=== PATIENT | male | born 1965 | race Caucasian/White ===

== ENCOUNTER 2017-02-01 07:19 | Outpatient (CLI) | payer OTHER ==
[2017-02-01] MEDS ORDERED: IOPAMIDOL-300 100 ML VIAL IVP ONE (08:47)
== END 2017-02-01 07:20 | disposition home or self-care (01) ==
DX: N21.0 Calculus in bladder (principal); N20.0 Calculus of kidney
CPT/HCPCS: 74178; Q9967

== ENCOUNTER 2017-07-18 13:18 | Outpatient (CLI) | payer OTHER ==
[2017-07-18 13:30] LABS: CHOL/HDL RATIO 4.1 (<5.0); CHOLESTEROL 319 mg/dL; HDL CHOLESTEROL 78 mg/dL; LDL/HDL RATIO 2.4 (<3.6); TRIGLYCERIDES 280 mg/dL; VLDL CHOLESTEROL 56 mg/dL
== END 2017-07-18 13:19 | disposition home or self-care (01) ==
LOC: LAB.WCP 13:18
DX: E78.5 Hyperlipidemia, unspecified (principal); Z12.5 Encounter for screening for malignant neoplasm of prostate; Z79.899 Other long term (current) drug therapy
CPT/HCPCS: 36415; 80061; 84153; 84450; 84460

== ENCOUNTER 2017-08-01 07:10 | Outpatient (CLI) | payer OTHER ==
--- NOTE | 2017-08-01 14:02 | Ultrasound Report ---
COMPLETE ABDOMINAL ULTRASOUND: 08/01/2017 CLINICAL INDICATION: Abnormal enzymes. TECHNIQUE: Real-time scanning was performed with outside sales representative static images obtained. FINDINGS: The liver measures 15.8 cm. Hepatic echogenicity is diffusely increased, compatible with f atty infiltration. No focal parenchymal lesion or intrahepatic biliary dilatation is seen. The common bile duct measures 5 mm. The gallbladder is normal, as is the pancreas. The right kidney measures 11 .6 cm, and is unremarkable. The left kidney measures 11.9 cm, and demonstrates an incidental 1.4 cm c yst in the lower pole. The spleen measures 11.9 cm, and demonstrates normal echotexture. The abdomina l aorta is normal in caliber throughout. The inferior vena cava is unremarkable. No free fluid is pre sent. IMPRESSION: FATTY INFILTRATION OF THE LIVER. NO EVIDENCE OF CHOLELITHIASIS OR BILIARY OBSTRUCTION. JOB #: [id number] EXT JOB #:[id number]
== END 2017-08-01 07:11 | disposition home or self-care (01) ==
LOC: DI 07:10
PROVIDERS: ATTEND Family Medicine
DX: K76.0 Fatty (change of) liver, not elsewhere classified (principal)
CPT/HCPCS: 76700

== ENCOUNTER 2017-09-04 11:34 | Day surgery (SDC) | payer OTHER ==
[2017-09-04] MEDS ORDERED: LACTATED RINGERS 1,000 ML IV ONE (12:08)
[2017-09-04] MEDS ORDERED: MIDAZOLAM 2 MG/2 ML VIAL IVP ONE (12:23)
[2017-09-04] MEDS ORDERED: fentaNYL 100 MCG/2 ML VIAL IVP ONE (12:23)
[2017-09-04 13:38] VITALS: BP 135/92
== END 2017-09-04 11:35 | disposition home or self-care (01) ==
LOC: SDS 11:34
PROVIDERS: ATTEND Surgery
PROC: 0DBN8ZX Excision of Sigmoid Colon, Via Natural or Artificial Opening Endoscopic, Diagnostic (ICD-10-PCS; 2017-09-04)
PROC: 0DBL8ZX Excision of Transverse Colon, Via Natural or Artificial Opening Endoscopic, Diagnostic (ICD-10-PCS; principal; 2017-09-04 13:30)
DX: Z12.11 Encounter for screening for malignant neoplasm of colon (principal); D12.3 Benign neoplasm of transverse colon; Z80.0 Family history of malignant neoplasm of digestive organs
CPT/HCPCS: 45384; 45385; J7120

== ENCOUNTER 2019-08-14 18:21 | Emergency (ER) | payer OTHER ==
[2019-08-14] MEDS ORDERED: OLANZapine 10 MG VIAL IM STA (18:34)
[2019-08-14] MEDS ORDERED: LORazepam 2 MG/ML VIAL IM STA (18:34)
[2019-08-14 18:56] LABS: BASOPHILS % (AUTO) 0.5 %; EOSINOPHILS % (AUTO) 0.7 %; HGB - HEMOGLOBIN 15.3 g/dL (14.0-18.0); LYMPHOCYTES # (AUTO) 2.2 10^3/uL (1.5-3.5); LYMPHOCYTES % (AUTO) 39.9 %; MEAN CORPUSCULAR HEMOGLOBIN 33.1 pg (27.0-31.0); MEAN CORPUSCULAR HGB CONC 34.5 g/dL (32.0-36.0); MEAN CORPUSCULAR VOLUME 95.9 fL (80.0-94.0); MONOCYTES # (AUTO) 0.7 10^3/uL (0.0-1.0); MONOCYTES % (AUTO) 12.9 %; NEUTROPHILS # (AUTO) 2.5 10^3/uL (1.5-6.6); NEUTROPHILS % (AUTO) 45.5 %; PLT - PLATELET COUNT 183 10^3/uL (130-450); RED BLOOD COUNT 4.62 10^6/uL (4.70-6.10); RED CELL DISTRIBUTION WIDTH 12.6 % (12.0-15.0); WHITE BLOOD COUNT 5.6 x10^3/uL (4.8-10.8)
[2019-08-14 19:07] LABS: ACETAMINOPHEN < 10 ug/mL (10-30); ALBUMIN 4.7 g/dL (3.2-5.5); ALBUMIN/GLOBULIN RATIO 1.3 (1.0-2.2); ALKALINE PHOSPHATASE 70 IU/L (42-121); ALT ALANINE AMINOTRANSFERASE 107 IU/L (10-60); AST ASPARTATE AMINOTRANSFERASE 113 IU/L (10-42); BUN - BLOOD UREA NITROGEN 17 mg/dL (6-20); CALCIUM 9.4 mg/dL (8.5-10.3); CARBON DIOXIDE - CO2 23 mmol/L (21-32); CHLORIDE 104 mmol/L (101-111); CREATININE 1.1 mg/dL (0.6-1.2); GFR - MDRD 70 (>89); GLUCOSE 103 mg/dL (70-100); LIPASE 47 U/L (22-51); SALICYLATE < 6.0 mg/dL; SODIUM 141 mmol/L (135-145); TOTAL PROTEIN 8.3 g/dL (6.7-8.2)
[2019-08-15] MEDS ORDERED: FOLIC ACID INJ 1 MG, THIAMINE INJ 100 MG, MAGNESIUM SULFATE 2 GM, MULTIVITAMIN 10 ML in... IV STA ×5 (00:26)
[2019-08-15] MEDS ORDERED: THIAMINE 100 MG/1 ML 2 ML MDV ONE (00:42)
[2019-08-15] MEDS ORDERED: SODIUM CHLORIDE 0.9% 1,000 ML IV ONE (01:34)
--- NOTE | 2019-08-15 03:12 | ED Physician Documentation ---
PD HPI MHE - Stated complaint Stated Complaint: MHE - Chief complaint Chief Complaint: MHE - History obtained from History obtained from: Patient - History of Present Illness Primary symptom: Suicidal ideation Timing - onset: Today Contributing factors: Sig other, Substance abuse - ETOH Similar symptoms before: Has not had sx before Recently seen: Not recently seen - Additional information Additional information: 53 y/o intoxicated male arrives by police in handcuffs for suicidal ideation that is documented in texts to his that he is . Review of Systems Constitutional: denies: Fever Eyes: denies: Decreased vision Ears: denies: Ear pain Nose: denies: Congestion Throat: denies: Sore throat Respiratory: denies: Cough GI: denies: Nausea, Vomiting : denies: Dysuria Skin: denies: Rash Musculoskeletal: denies: Neck pain, Back pain, Extremity pain Neurologic: denies: Generalized weakness, Focal weakness, Numbness Psychiatric: reports: Depressed. denies: Suicidal, Homicidal, Hallucinations PD PAST MEDICAL HISTORY - Past Medical History Cardiovascular: Hypertension, High cholesterol Respiratory: None Endocrine/Autoimmune: None GI: Other : None HEENT: None Psych: Anxiety Musculoskeletal: None Derm: Psoriasis - Past Surgical History General: Other - Present Medications Home Medications: Ambulatory Orders Medication Instructions Recorded Confirmed Clobetasol Propionate [Temovate] 1 ea TOP DAILY 09/22/15 09/03/17 SUMAtriptan [Imitrex] 25 mg PO BID #10 tablet 09/22/15 09/03/17 Adalimumab [Humira] 1 each ABBOJECT ONCE 09/03/17 09/03/17 Paroxetine HCl [Paxil] 20 mg PO ONCE PRN 09/03/17 09/04/17 - Allergies Allergies/Adverse Reactions: Allergies Allergy/AdvReac Type Severity Reaction Status Date / Time Penicillins Allergy Hives Verified 08/14/19 18:26 Sulfa (Sulfonamide Allergy Hives Verified 08/14/19 18:26 Antibiotics) - Social History Does the pt smoke?: No Smoking Status: Never smoker Does the pt drink ETOH?: Yes Does the pt have substance abuse?: No PD ED PE NORMAL - Vitals Vital signs reviewed: Yes (tachy and hypertensive ) - General General: Alert and oriented X 3, No acute distress, Well developed/nourished - HEENT HEENT: Atraumatic, PERRL, EOMI - Neck Neck: Supple, no meningeal sign - Respiratory Respiratory: No respiratory distress - Derm Derm: Normal color, Warm and dry, No rash - Extremities Extremities: No deformity, No edema - Neuro Neuro: Alert and oriented X 3, electrical electronics technician 2-12 intact, No motor deficit, No sensory deficit, Normal speech Eye Opening: Spontaneous Motor: Obeys Commands Verbal: Oriented GCS Score: 15 - Psych Psych: Normal mood, Normal affect Results - Vitals Vitals: Vital Signs - 24 hr 08/14/19 08/14/19 08/14/19 18:23 19:38 21:42 Temperature 98.3 C H Heart Rate 120 H 96 60 Respiratory 18 16 Rate Blood Pressure 162/117 H 154/96 H O2 Saturation 96 97 95 08/14/19 08/15/19 08/15/19 23:15 01:00 03:00 Temperature 36.5 C Heart Rate 81 71 78 Respiratory 16 12 14 Rate Blood Pressure 88/57 L 80/57 L 102/78 O2 Saturation 99 100 100 08/15/19 08/15/19 05:00 07:00 Temperature Heart Rate 77 78 Respiratory 12 14 Rate Blood Pressure 111/77 135/92 H O2 Saturation 97 100 Oxygen O2 Source Room air - Labs Labs: Laboratory Tests 08/14/19 08/14/19 08/14/19 18:48 18:48 18:48 WBC 5.6 RBC 4.62 L Hgb 15.3 Hct 44.3 MCV 95.9 H MCH 33.1 H MCHC 34.5 RDW 12.6 Plt Count 183 MPV 8.0 Neut # (Auto) 2.5 Lymph # (Auto) 2.2 [place] # (Auto) 0.7 Eos # (Auto) 0.0 Baso # (Auto) 0.0 Absolute Nucleated RBC 0.00 Nucleated RBC % 0.0 Sodium 141 Potassium 3.3 L Chloride 104 Carbon Dioxide 23 Anion Gap 14.0 H BUN 17 Creatinine 1.1 Estimated GFR (MDRD) 70 L Glucose 103 H Calcium 9.4 Total Bilirubin 1.0 AST 113 H ALT 107 H Alkaline Phosphatase 70 Total Protein 8.3 H Albumin 4.7 Globulin 3.6 Albumin/Globulin Ratio 1.3 Lipase 47 TSH 2.31 Urine Color Urine Clarity Urine pH Ur Specific [place] Urine Protein Urine Glucose (UA) Urine Ketones Urine Occult Blood Urine Nitrite Urine Bilirubin Urine Urobilinogen Ur Leukocyte Esterase Ur Microscopic Review Urine Culture Comments Salicylates < 6.0 Acetaminophen < 10 L Ethyl Alcohol 373.9 08/15/19 07:34 WBC RBC Hgb Hct MCV MCH MCHC RDW Plt Count MPV Neut # (Auto) Lymph # (Auto) [place] # (Auto) Eos # (Auto) Baso # (Auto) Absolute Nucleated RBC Nucleated RBC % Sodium Potassium Chloride Carbon Dioxide Anion Gap BUN Creatinine Estimated GFR (MDRD) Glucose Calcium Total Bilirubin AST ALT Alkaline Phosphatase Total Protein Albumin Globulin Albumin/Globulin Ratio Lipase TSH Urine Color YELLOW Urine Clarity CLEAR Urine pH 5.5 Ur Specific [place] 1.025 Urine Protein NEGATIVE Urine Glucose (UA) NEGATIVE Urine Ketones NEGATIVE Urine Occult Blood TRACE-INTA Urine Nitrite NEGATIVE Urine Bilirubin NEGATIVE Urine Urobilinogen 0.2 (NORMAL) Ur Leukocyte Esterase NEGATIVE Ur Microscopic Review NOT INDICATED Urine Culture Comments NOT INDICATED Salicylates Acetaminophen Ethyl Alcohol PD MEDICAL DECISION MAKING - ED course Complexity details: reviewed results, re-evaluated patient, considered differential, d/w patient ED course: 53 y/o male has been detained by police as suicidal and an affidavit has been provided. The patient is intoxicated on arrival and not able to participate in interview. As he shirin he is cooperative and wants to go home indicating that he is not suicidal and he is regretting his drunken actions. He is detained in the ED for further evaluation by social worker aide. At shift change care of the patient is turned over to Dr. Johnson with expectation of a consult with social work and discharge to home. Departure - Departure Clinical Impression: Suicidal ideation Alcohol intoxication Qualifiers: Complication of substance-induced condition: with delirium Qualified Code(s): F10.921 - Alcohol use, unspecified with intoxication delirium Condition: Stable Instructions: ED Stress React, ED Alcohol Intoxication Follow-Up: Braynt Harper MD [Primary Care Provider] -
[2019-08-15 07:38] LABS: MUDS CUTOFF CONCENTRATIONS CUTOFF CONC BELOW:
[2019-08-15 07:44] LABS: BILIRUBIN,URINE NEGATIVE (NEGATIVE); GLUCOSE, URINE (UA) NEGATIVE (NEGATIVE); KETONES,URINE (UA) NEGATIVE (NEGATIVE); LEUKOCYTE ESTERASE, URINE NEGATIVE (NEGATIVE); NITRITE,URINE NEGATIVE (NEGATIVE); OCCULT BLOOD,URINE TRACE-INTA (NEGATIVE); PH,URINE 5.5 PH (5.0-7.5); PROTEIN,URINE NEGATIVE (NEGATIVE); UROBILINOGEN,URINE 0.2 (NORMAL) E.U./dL (NORMAL)
[2019-08-15 07:49] LABS: CLARITY,URINE CLEAR (CLEAR)
--- NOTE | 2019-08-15 08:12 | ED Physician Documentation ---
ED Addendum - Addendum Addendum: Patient signed out to me by Dr. Pérez. This is a 53-year-old male who presented with alcohol intoxication and suicidal ideation. As he has become sober his suicidal ideation had has resolved. He is awaiting a social work consult, likely disposition will be discharged. 08/15/19 08:11 Social work evaluate the patient and felt he was safe for discharge, I agree with his assessment. Patient denies any suicidal ideation at this time. He was provided with resources. I recommended that he avoid alcohol or other substances. Return precautions were discussed and patient was discharged home. 08/15/19 09:34 Departure - Departure Disposition: 01 Home, Self Care Clinical Impression: Suicidal ideation Alcohol intoxication Qualifiers: Complication of substance-induced condition: with delirium Qualified Code(s): F10.921 - Alcohol use, unspecified with intoxication delirium Condition: Stable Instructions: ED Stress React, ED Alcohol Intoxication Follow-Up: Bryant Harper MD [Primary Care Provider] - Comments: Return to the emergency department if you have any suicidal ideation, or any other new or concerning symptoms. Please follow-up with your primary care provider and avoid alcohol or other substance use.
[2019-08-15 08:21] LABS: COCAINE SCREEN URINE NEGATIVE (NEGATIVE); METHAMPHETAMINES SCREEN, URINE NEGATIVE (NEGATIVE)
[2019-08-15 08:22] LABS: AMPHETAMINE SCREEN,URINE NEGATIVE (NEGATIVE); BENZODIAZEPINES SCREEN, URINE POSITIVE (NEGATIVE); METHADONE SCREEN, URINE NEGATIVE (NEGATIVE); OPIATE SCREEN, URINE NEGATIVE (NEGATIVE); OXYCODONE SCREEN, URINE NEGATIVE (NEGATIVE); PROPOXYPHENE SCREEN, URINE NEGATIVE (NEGATIVE); TRICYCLIC ANTIDEPRESSANT,URINE NEGATIVE (NEGATIVE)
[2019-08-15 09:37] VITALS: BP 128/88
== END 2019-08-15 09:42 | disposition home or self-care (01) ==
LOC: ED 18:21
DX: R45.851 Suicidal ideations (principal); F10.121 Alcohol abuse with intoxication delirium; F32.9 Major depressive disorder, single episode, unspecified; F41.9 Anxiety disorder, unspecified; I10 Essential (primary) hypertension; Z63.5 Disruption of family by separation and divorce
CPT/HCPCS: 36415; 80320; 80329; 81003; 83690; 96361; 96365; 96372; 99283; 99284; J2060; J3411; 80053; 80306; 80307; 81001; 84443; 85025; 87086

== ENCOUNTER 2019-10-24 07:00 | Outpatient (CLI) | payer OTHER ==
[2019-10-24 13:13] LABS: BASOPHILS % (AUTO) 0.8 %; EOSINOPHILS % (AUTO) 1.2 %; HGB - HEMOGLOBIN 13.6 g/dL (14.0-18.0); LYMPHOCYTES % (AUTO) 39.4 %; MEAN CORPUSCULAR HEMOGLOBIN 30.4 pg (27.0-31.0); MEAN CORPUSCULAR HGB CONC 32.1 g/dL (32.0-36.0); MEAN CORPUSCULAR VOLUME 94.6 fL (80.0-94.0); MEAN PLATELET VOLUME 9.3 fL (7.4-11.4); MONOCYTES # (AUTO) 0.3 10^3/uL (0.0-1.0); MONOCYTES % (AUTO) 11.4 %; NEUTROPHILS # (AUTO) 1.2 10^3/uL (1.5-6.6); NEUTROPHILS % (AUTO) 46.8 %; PLT - PLATELET COUNT 203 10^3/uL (130-450); RED BLOOD COUNT 4.48 10^6/uL (4.70-6.10); WHITE BLOOD COUNT 2.5 x10^3/uL (4.8-10.8)
[2019-10-24 13:55] LABS: ALBUMIN 4.3 g/dL (3.2-5.5); ALBUMIN/GLOBULIN RATIO 1.7 (1.0-2.2); ALKALINE PHOSPHATASE 53 IU/L (42-121); ALT ALANINE AMINOTRANSFERASE 243 IU/L (10-60); AST ASPARTATE AMINOTRANSFERASE 91 IU/L (10-42); BILIRUBIN,TOTAL 1.1 mg/dL (0.2-1.0); BUN - BLOOD UREA NITROGEN 13 mg/dL (6-20); CALCIUM 9.2 mg/dL (8.5-10.3); CARBON DIOXIDE - CO2 27 mmol/L (21-32); CHLORIDE 105 mmol/L (101-111); CHOL/HDL RATIO 3.7 (<5.0); CHOLESTEROL 178 mg/dL; GFR - MDRD 78 (>89); GLUCOSE 91 mg/dL (70-100); HDL CHOLESTEROL 48 mg/dL; LDL CHOLESTEROL,CALCULATED 116 mg/dL; LDL/HDL RATIO 2.4 (<3.6); SODIUM 137 mmol/L (135-145); TOTAL PROTEIN 6.9 g/dL (6.7-8.2); VLDL CHOLESTEROL 14 mg/dL
[2019-10-24 14:09] LABS: RBC MORPHOLOGY (MULTIPLE) 1+ ANISOCYTOSIS (NORMAL)
== END 2019-10-24 23:59 | disposition home or self-care (01) ==
LOC: LAB.WCP 07:00
PROVIDERS: ATTEND Family Medicine
DX: I10 Essential (primary) hypertension (principal); L40.9 Psoriasis, unspecified; E78.5 Hyperlipidemia, unspecified; K76.0 Fatty (change of) liver, not elsewhere classified; R74.8 Abnormal levels of other serum enzymes
CPT/HCPCS: 36415; 80053; 80061; 83721; 84153; 84443; 85025

== ENCOUNTER 2020-02-03 18:14 | Emergency (ER) | payer OTHER ==
--- NOTE | 2020-02-03 18:58 | ED Physician Documentation ---
PD HPI LOWER EXT INJURY - Stated complaint Stated Complaint: RT BIG TOE INJ - Chief complaint Chief Complaint: Ext Problem - History obtained from History obtained from: Patient (54-year-old male patient comes in today with chief complaint of right great toe pain. He works for the [employer]. He was out digging with a shovel when he kicked the shovel to break the dirt list. Developed pain and edema. He continue to work throughout the day noted increased pain in her right toe. When he got home sat down for a few minutes he tried to stand back up he was unable to stand up due to the pain in his right great toe. He has no other complaints today.Right great toe with edema, ecchymosis, tender to palp. He has filled out his portion of the Workmen's Comp. forms.) PD PAST MEDICAL HISTORY - Past Medical History Cardiovascular: Hypertension, High cholesterol Respiratory: None Endocrine/Autoimmune: None GI: Other : None HEENT: None Psych: Anxiety Musculoskeletal: None Derm: Psoriasis - Past Surgical History General: Other - Present Medications Home Medications: Ambulatory Orders Medication Instructions Recorded Confirmed Clobetasol Propionate [Temovate] 1 ea TOP DAILY 09/22/15 09/03/17 SUMAtriptan [Imitrex] 25 mg PO BID #10 tablet 09/22/15 09/03/17 Adalimumab [Humira] 1 each ABBOJECT ONCE 09/03/17 09/03/17 PARoxetine HCl [Paxil] 20 mg PO ONCE PRN 09/03/17 09/04/17 - Allergies Allergies/Adverse Reactions: Allergies Allergy/AdvReac Type Severity Reaction Status Date / Time Penicillins Allergy Hives Verified 02/03/20 18:17 Sulfa (Sulfonamide Allergy Hives Verified 02/03/20 18:17 Antibiotics) - Social History Does the pt smoke?: No Smoking Status: Never smoker Does the pt drink ETOH?: Yes Does the pt have substance abuse?: No PD ED PE NORMAL - General General: Alert and oriented X 3, No acute distress - HEENT HEENT: Atraumatic, PERRL, EOMI - Cardiac Cardiac: RRR - Respiratory Respiratory: No respiratory distress - Extremities Extremities: No deformity. No: No tenderness to palpate, Normal ROM s pain, No edema PD ED PE EXPANDED - Extremities Extremities: Right toe(s) (Right great toe with edema, ecchymosis, tender to palp.) Results - Vitals Vitals: Vital Signs - 24 hr 02/03/20 02/03/20 18:18 19:45 Temperature 36.6 C Heart Rate 88 85 Respiratory 16 16 Rate Blood Pressure 150/100 H 145/89 H O2 Saturation 98 100 Oxygen O2 Source Room air - Rads (name of study) No standard instances Radiology: Final report received (No fracture noted to the right great toe.) PD MEDICAL DECISION MAKING - ED course Complexity details: reviewed results, re-evaluated patient, d/w patient Departure - Departure Disposition: 01 Home, Self Care Clinical Impression: Sprain of toe, great, right Qualifiers: Encounter type: initial encounter Qualified Code(s): S93.501A - Unspecified sprain of right great toe, initial encounter Instructions: ED Sprain Toe Comments: your xray does not show any toe break. You can keep your big toe darlin tapped to the second toe for support. You can ice your toe tonight 10-15 mins every hour to help reduce swelling and pain. Keep your foot elevated tonight as much as you can also to reduce welling. . Your big toe is crucial to your ability to walk, so expect pain to the toe when you are walking for several days. You can take Tylenol for pain control.
--- NOTE | 2020-02-03 19:43 | XRAY Report ---
Reason: right reat toe pain 2/2 kicking shovel Procedure Date: 02/03/2020 Accession Number: [id number] / [id number] Procedure: XR - Toe(s) RT CPT Code: Final Report FULL RESULT: EXAM: RIGHT TOE RADIOGRAPHY EXAM DATE: 02/03/2020 07:01 PM. CLINICAL HISTORY: Right reat toe pain 2/2 kicking shovel. COMPARISON: None. TECHNIQUE: 3 views. FINDINGS: Bones: No acute displaced fracture or malalignment. Joints: Normal. No subluxations. Soft Tissues: Normal. No soft tissue swelling. IMPRESSION: No acute displaced fracture or malalignment. RADIA
[2020-02-03 19:45] VITALS: BP 145/89
== END 2020-02-03 19:51 | disposition home or self-care (01) ==
LOC: ED 18:14
DX: S93.501A Unspecified sprain of right great toe, initial encounter (principal); W22.8XXA Striking against or struck by other objects, initial encounter; Y93.H1 Activity, digging, shoveling and raking; Y99.0 Civilian activity done for income or pay; I10 Essential (primary) hypertension
CPT/HCPCS: 1040M; 73660; 99281; 99283

== ENCOUNTER 2020-10-01 09:31 | Day surgery (SDC) | payer OTHER ==
[2020-10-01] MEDS ORDERED: LACTATED RINGERS 1,000 ML IV ONE ×2 (09:45→11:10)
[2020-10-01] MEDS ORDERED: MIDAZOLAM 2 MG/2 ML VIAL IVP ONE (10:28)
[2020-10-01] MEDS ORDERED: fentaNYL 100 MCG/2 ML VIAL IVP ONE (10:28)
[2020-10-01 11:20] VITALS: BP 101/79
== END 2020-10-01 09:32 | disposition home or self-care (01) ==
LOC: SDS 09:31
PROVIDERS: ATTEND Surgery
DX: Z12.11 Encounter for screening for malignant neoplasm of colon (principal); K57.30 Diverticulosis of large intestine without perforation or abscess without bleeding; Z86.010 Personal history of colon polyps; Z80.0 Family history of malignant neoplasm of digestive organs; I10 Essential (primary) hypertension; Z87.891 Personal history of nicotine dependence
CPT/HCPCS: 45378; J7120

== ENCOUNTER 2020-12-24 06:52 | Outpatient (CLI) | payer OTHER ==
[2020-12-24 07:09] LABS: BASOPHILS % (AUTO) 0.5 %; EOSINOPHILS # (AUTO) 0.1 10^3/uL (0.0-0.7); EOSINOPHILS % (AUTO) 1.5 %; HCT - HEMATOCRIT 43.8 % (42.0-52.0); HGB - HEMOGLOBIN 14.3 g/dL (14.0-18.0); LYMPHOCYTES # (AUTO) 1.5 10^3/uL (1.5-3.5); LYMPHOCYTES % (AUTO) 38.9 %; MEAN CORPUSCULAR HEMOGLOBIN 30.2 pg (27.0-31.0); MEAN CORPUSCULAR HGB CONC 32.6 g/dL (32.0-36.0); MEAN CORPUSCULAR VOLUME 92.4 fL (80.0-94.0); MEAN PLATELET VOLUME 8.4 fL (7.4-11.4); MONOCYTES # (AUTO) 0.3 10^3/uL (0.0-1.0); MONOCYTES % (AUTO) 8.6 %; PLT - PLATELET COUNT 232 10^3/uL (130-450); RED BLOOD COUNT 4.74 10^6/uL (4.70-6.10); RED CELL DISTRIBUTION WIDTH 11.8 % (12.0-15.0)
[2020-12-24 07:23] LABS: ALBUMIN 4.6 g/dL (3.2-5.5); ALBUMIN/GLOBULIN RATIO 1.7 (1.0-2.2); ALKALINE PHOSPHATASE 59 IU/L (42-121); ALT ALANINE AMINOTRANSFERASE 19 IU/L (10-60); AST ASPARTATE AMINOTRANSFERASE 19 IU/L (10-42); BILIRUBIN,TOTAL 0.9 mg/dL (0.2-1.0); BUN - BLOOD UREA NITROGEN 16 mg/dL (6-20); CALCIUM 10.1 mg/dL (8.5-10.3); CARBON DIOXIDE - CO2 28 mmol/L (21-32); CHLORIDE 103 mmol/L (101-111); CHOLESTEROL 223 mg/dL; CREATININE 0.8 mg/dL (0.6-1.2); GFR - MDRD 100 (>89); GLUCOSE 101 mg/dL (70-100); HDL CHOLESTEROL 56 mg/dL; LDL CHOLESTEROL,CALCULATED 145 mg/dL; LDL/HDL RATIO 2.6 (<3.6); POTASSIUM 4.5 mmol/L (3.5-5.0); SODIUM 142 mmol/L (135-145); TOTAL PROTEIN 7.3 g/dL (6.7-8.2); TRIGLYCERIDES 108 mg/dL; VLDL CHOLESTEROL 22 mg/dL
[2020-12-24 07:50] LABS: THYROID STIMULATING HORMONE 0.52 uIU/mL (0.34-5.60)
[2020-12-24 11:01] LABS: ESTIMATED AVERAGE GLUCOSE 108 mg/dL (70-100); HEMOGLOBIN A1c% 5.4 % (4.27-6.07)
== END 2020-12-24 06:53 | disposition home or self-care (01) ==
LOC: LAB 06:52
PROVIDERS: ATTEND Internal Medicine
DX: I10 Essential (primary) hypertension (principal); R73.01 Impaired fasting glucose; F32.1 Major depressive disorder, single episode, moderate; Z80.42 Family history of malignant neoplasm of prostate
CPT/HCPCS: 36415; 80053; 80061; 82043; 82570; 83036; 83721; 84153; 84443; 85025

== ENCOUNTER 2020-12-30 08:00 | Outpatient (CLI) | payer OTHER ==
[2020-12-30 10:42] LABS: CREATININE,URINE 103.4 mg/dL; MICROALBUM/CREATININE RATIO,UR 2.9 ug/mg (<30.0); MICROALBUMIN,URINE 0.3 mg/dL (0-300.0)
== END 2020-12-30 23:59 ==
LOC: LAB.R 08:00
PROVIDERS: ATTEND Internal Medicine
DX: R73.01 Impaired fasting glucose (principal)
CPT/HCPCS: 82043; 82570

== ENCOUNTER 2021-10-28 08:00 | Outpatient (CLI) | payer OTHER ==
[2021-10-28 17:47] LABS: BASOPHILS % (AUTO) 0.7 %; EOSINOPHILS % (AUTO) 0.5 %; HCT - HEMATOCRIT 43.9 % (42.0-52.0); HGB - HEMOGLOBIN 14.4 g/dL (14.0-18.0); LYMPHOCYTES # (AUTO) 1.1 10^3/uL (1.5-3.5); LYMPHOCYTES % (AUTO) 24.7 %; MEAN CORPUSCULAR HEMOGLOBIN 29.3 pg (27.0-31.0); MEAN CORPUSCULAR HGB CONC 32.8 g/dL (32.0-36.0); MEAN CORPUSCULAR VOLUME 89.4 fL (80.0-94.0); MEAN PLATELET VOLUME 8.6 fL (7.4-11.4); MONOCYTES # (AUTO) 0.4 10^3/uL (0.0-1.0); MONOCYTES % (AUTO) 8.2 %; NEUTROPHILS # (AUTO) 2.9 10^3/uL (1.5-6.6); NEUTROPHILS % (AUTO) 65.7 %; PLT - PLATELET COUNT 266 10^3/uL (130-450); RED BLOOD COUNT 4.91 10^6/uL (4.70-6.10); WHITE BLOOD COUNT 4.4 x10^3/uL (4.8-10.8)
[2021-10-28 18:07] LABS: CREATININE,URINE 79.7 mg/dL; MICROALBUM/CREATININE RATIO,UR 6.3 ug/mg (<30.0); MICROALBUMIN,URINE 0.5 mg/dL (0-300.0)
[2021-10-28 18:16] LABS: ALBUMIN 4.9 g/dL (3.2-5.5); ALBUMIN/GLOBULIN RATIO 1.7 (1.0-2.2); ALKALINE PHOSPHATASE 43 IU/L (42-121); ALT ALANINE AMINOTRANSFERASE 15 IU/L (10-60); AST ASPARTATE AMINOTRANSFERASE 19 IU/L (10-42); BUN - BLOOD UREA NITROGEN 10 mg/dL (6-20); CALCIUM 9.7 mg/dL (8.5-10.3); CARBON DIOXIDE - CO2 27 mmol/L (21-32); CHLORIDE 101 mmol/L (101-111); CHOL/HDL RATIO 3.9 (<5.0); CHOLESTEROL 233 mg/dL; CREATININE 0.8 mg/dL (0.6-1.2); GFR - MDRD 100 (>89); GLUCOSE 90 mg/dL (70-100); HDL CHOLESTEROL 60 mg/dL; LDL CHOLESTEROL,CALCULATED 156 mg/dL; LDL/HDL RATIO 2.6 (<3.6); POTASSIUM 4.1 mmol/L (3.5-5.0); SODIUM 139 mmol/L (135-145); TOTAL PROTEIN 7.8 g/dL (6.7-8.2); TRIGLYCERIDES 86 mg/dL; VLDL CHOLESTEROL 17 mg/dL
[2021-10-28 18:27] LABS: THYROID STIMULATING HORMONE 1.06 uIU/mL (0.34-5.60)
[2021-10-28 20:14] LABS: ESTIMATED AVERAGE GLUCOSE 111 mg/dL (70-100); HEMOGLOBIN A1c% 5.5 % (4.27-6.07)
== END 2021-10-28 23:59 ==
LOC: LAB.WCP 08:00
PROVIDERS: ATTEND Internal Medicine
DX: L40.9 Psoriasis, unspecified (principal); R73.01 Impaired fasting glucose; Z80.42 Family history of malignant neoplasm of prostate; F32.1 Major depressive disorder, single episode, moderate; D72.819 Decreased white blood cell count, unspecified
CPT/HCPCS: 36415; 80053; 80061; 82043; 82570; 83036; 83721; 84153; 84443; 85025

== ENCOUNTER 2023-08-24 08:33 | Outpatient (CLI) | payer OTHER ==
[2023-08-24 08:57] LABS: BASOPHILS % (AUTO) 0.6 %; EOSINOPHILS # (AUTO) 0.1 10^3/uL (0.0-0.7); EOSINOPHILS % (AUTO) 1.8 %; HCT - HEMATOCRIT 42.9 % (42.0-52.0); HGB - HEMOGLOBIN 14.1 g/dL (14.0-18.0); LYMPHOCYTES # (AUTO) 1.2 10^3/uL (1.5-3.5); LYMPHOCYTES % (AUTO) 36.8 %; MEAN CORPUSCULAR HEMOGLOBIN 29.4 pg (27.0-31.0); MEAN CORPUSCULAR HGB CONC 32.9 g/dL (32.0-36.0); MEAN CORPUSCULAR VOLUME 89.4 fL (80.0-94.0); MEAN PLATELET VOLUME 8.4 fL (7.4-11.4); MONOCYTES # (AUTO) 0.4 10^3/uL (0.0-1.0); MONOCYTES % (AUTO) 10.6 %; NEUTROPHILS # (AUTO) 1.6 10^3/uL (1.5-6.6); NEUTROPHILS % (AUTO) 48.7 %; PLT - PLATELET COUNT 251 10^3/uL (130-450); RED CELL DISTRIBUTION WIDTH 11.9 % (12.0-15.0); WHITE BLOOD COUNT 3.3 x10^3/uL (4.8-10.8)
[2023-08-24 09:21] LABS: ALBUMIN 4.6 g/dL (3.2-5.5); ALBUMIN/GLOBULIN RATIO 1.8 (1.0-2.2); ALKALINE PHOSPHATASE 51 IU/L (42-121); ALT ALANINE AMINOTRANSFERASE 17 IU/L (10-60); AST ASPARTATE AMINOTRANSFERASE 18 IU/L (10-42); BILIRUBIN,TOTAL 0.9 mg/dL (0.2-1.0); BUN - BLOOD UREA NITROGEN 11 mg/dL (6-20); CALCIUM 9.5 mg/dL (8.5-10.3); CARBON DIOXIDE - CO2 33 mmol/L (21-32); CHLORIDE 105 mmol/L (101-111); CHOLESTEROL 148 mg/dL; CREATININE 0.8 mg/dL (0.6-1.3); GFR - MDRD 99 (>89); GLUCOSE 97 mg/dL (74-104); HDL CHOLESTEROL 50 mg/dL; LDL CHOLESTEROL,CALCULATED 86 mg/dL; LDL/HDL RATIO 1.7 (<3.6); POTASSIUM 4.5 mmol/L (3.5-4.5); SODIUM 141 mmol/L (135-145); TOTAL PROTEIN 7.2 g/dL (6.4-8.9); TRIGLYCERIDES 58 mg/dL (48-352); VLDL CHOLESTEROL 12 mg/dL
[2023-08-24 09:33] LABS: CREATININE,URINE 128.1 mg/dL
[2023-08-24 09:34] LABS: MICROALBUMIN,URINE < 0.7 mg/dL
[2023-08-24 10:01] LABS: ESTIMATED AVERAGE GLUCOSE 111 mg/dL (70-100); HEMOGLOBIN A1c% 5.5 % (4.27-6.07)
[2023-08-24 10:39] LABS: THYROID STIMULATING HORMONE 0.69 uIU/mL (0.34-5.60)
== END 2023-08-24 08:34 | disposition home or self-care (01) ==
LOC: LAB 08:33
PROVIDERS: ATTEND Internal Medicine
DX: E78.5 Hyperlipidemia, unspecified (principal); R73.01 Impaired fasting glucose; Z12.5 Encounter for screening for malignant neoplasm of prostate; F32.1 Major depressive disorder, single episode, moderate; L40.9 Psoriasis, unspecified
CPT/HCPCS: 36415; 80053; 80061; 82043; 82570; 83036; 83721; 84153; 84443; 85025

== ENCOUNTER 2024-01-31 17:58 | Emergency (ER) | payer OTHER ==
[2024-01-31 18:08] VITALS: BP 160/90; O2SAT 100
[2024-01-31 18:55] LABS: BASOPHILS % (AUTO) 0.3 %; HCT - HEMATOCRIT 44.8 % (42.0-52.0); HGB - HEMOGLOBIN 14.7 g/dL (14.0-18.0); LYMPHOCYTES # (AUTO) 0.6 10^3/uL (1.5-3.5); LYMPHOCYTES % (AUTO) 8.6 %; MEAN CORPUSCULAR HEMOGLOBIN 29.3 pg (27.0-31.0); MEAN CORPUSCULAR HGB CONC 32.8 g/dL (32.0-36.0); MEAN CORPUSCULAR VOLUME 89.2 fL (80.0-94.0); MEAN PLATELET VOLUME 8.5 fL (7.4-11.4); MONOCYTES # (AUTO) 0.2 10^3/uL (0.0-1.0); MONOCYTES % (AUTO) 2.1 %; NEUTROPHILS # (AUTO) 6.4 10^3/uL (1.5-6.6); NEUTROPHILS % (AUTO) 88.6 %; PLT - PLATELET COUNT 261 10^3/uL (130-450); RED BLOOD COUNT 5.02 10^6/uL (4.70-6.10); RED CELL DISTRIBUTION WIDTH 11.7 % (12.0-15.0); WHITE BLOOD COUNT 7.2 x10^3/uL (4.8-10.8)
[2024-01-31 19:13] LABS: ALBUMIN 4.8 g/dL (3.2-5.5); ALBUMIN/GLOBULIN RATIO 1.6 (1.0-2.2); BILIRUBIN,TOTAL 1.1 mg/dL (0.2-1.0); CALCIUM 10.4 mg/dL (8.5-10.3); TOTAL PROTEIN 7.8 g/dL (6.4-8.9)
--- NOTE | 2024-01-31 19:33 | ED Physician Documentation ---
PD HPI ABD PAIN - Stated complaint Stated Complaint: ABD PX - Chief complaint Chief Complaint: Abd Pain - Additional information Additional information: 58-year-old male with history of multiple recurrent renal calculi. Patient says that he has not had an episode this severe in about last 5 years. He said that he is in passing multiple stones any difficulty at home he is able to see some hematuria at home as well as stones in his urine but last couple days he has not h this severe flank pain in a long time. He has been having chills at home unsure if he has been febrile or not but diaphoretic with episodes of severe pain. He will still avoid but he is concerned that possibly the kidney stone is obstructing. PD PAST MEDICAL HISTORY - Past Medical History Past Medical History: Yes Cardiovascular: None Respiratory: None Endocrine/Autoimmune: None GI: None, Colon polyps : Kidney stones HEENT: Chronic vision loss Psych: None Musculoskeletal: None Derm: Psoriasis - Past Surgical History Past Surgical History: No General: Colonoscopy, Other - Present Medications Home Medications: Ambulatory Orders Medication Instructions Recorded Confirmed DULoxetine [Cymbalta] 01/31/24 Rosuvastatin Calcium [Crestor] 01/31/24 Tamsulosin [Flomax] 0.4 mg PO DAILY #30 cap 01/31/24 Ustekinumab [Stelara] 01/31/24 - Allergies Allergies/Adverse Reactions: Allergies Allergy/AdvReac Type Severity Reaction Status Date / Time Penicillins Allergy Hives Verified 01/31/24 18:02 Sulfa (Sulfonamide Allergy Hives Verified 01/31/24 18:02 Antibiotics) - Social History Does the pt smoke?: No Smoking Status: Never smoker Does the pt drink ETOH?: Yes Does the pt have substance abuse?: No - Immunizations Immunizations are current?: Yes - POLST Patient has POLST: No PD ED PE NORMAL - Vitals Vital signs reviewed: Yes - General General: Alert and oriented X 3, No acute distress, Well developed/nourished - HEENT HEENT: Atraumatic - Cardiac Cardiac: RRR - Respiratory Respiratory: No respiratory distress, Clear bilaterally - Abdomen Abdomen: Other (Suprapubic tenderness) - Back Back: Other (Left CVA tenderness) - Derm Derm: Normal color, Warm and dry, No rash Results - Vitals Vitals: Vital Signs - 24 hr 01/31/24 18:02 Temperature 36.8 C Heart Rate 66 Respiratory 16 Rate Blood Pressure 160/90 H O2 Saturation 100 Oxygen O2 Source Room air - Labs Labs: Laboratory Tests 01/31/24 01/31/24 01/31/24 18:48 18:48 20:14 WBC 7.2 RBC 5.02 Hgb 14.7 Hct 44.8 MCV 89.2 MCH 29.3 MCHC 32.8 RDW 11.7 L Plt Count 261 MPV 8.5 Neut # (Auto) 6.4 Lymph # (Auto) 0.6 L [place] # (Auto) 0.2 Eos # (Auto) 0.0 Baso # (Auto) 0.0 Absolute Nucleated RBC 0.00 Nucleated RBC % 0.0 Sodium 135 Potassium 4.0 Chloride 100 L Carbon Dioxide 25 Anion Gap 10.0 BUN 13 Creatinine 1.0 Estimated GFR (MDRD) 76 L Glucose 110 H Calcium 10.4 H Total Bilirubin 1.1 H AST 20 ALT 13 Alkaline Phosphatase 60 Total Protein 7.8 Albumin 4.8 Globulin 3.0 Albumin/Globulin Ratio 1.6 Lipase 16 Urine Color YELLOW Urine Clarity CLEAR Urine pH 8.0 H Ur Specific [place] 1.020 Urine Protein NEGATIVE Urine Glucose (UA) NEGATIVE Urine Ketones 15 H Urine Occult Blood MODERATE H Urine Nitrite NEGATIVE Urine Bilirubin NEGATIVE Urine Urobilinogen 0.2 (NORMAL) Ur Leukocyte Esterase NEGATIVE Urine RBC 11-25 H Urine WBC 0-3 Ur Squamous Epith Cells NONE SEEN Urine Bacteria Rare Ur Microscopic Review INDICATED Urine Culture Comments NOT INDICATED - Rads (name of study) CT KUB Relevant Findings:: Final report received, EMP independent interpretation of test, Other (6 mm obstructive left distal ureter stone causing mild hydronephrosis, Bilateral nonobstructive renal calculi, , Right common iliac artery aneurysm 2.4 cm) PD Medical Decision Making - ED course ED course: 58-year-old male with left flank pain differentials include but not limited to pyelonephritis, renal calculi, diverticulitis, atypical appendicitis. Labs were complete and revealed no leukocytosis no anemia electrolytes are within normal limits, urinalysis is positive for hematuria. We went ahead with a CT KUB for further evaluation of possible kidney stones and we were able to see a 6 mm left distal ureter stone causing mild hydronephrosis. Given that it is under 7 mm patient is afebrile he has no white count I do not believe any further intervention or hospitalization is warranted. He was also found to have a 1.3 cm right adrenal nodule that he was informed about as well as a right common iliac artery aneurysm measuring about 2.4 cm. Patient was given the radiology read on his discharge summary for him to also read himself. He was started on Flomax here in the emergency department and a referral was made to our wonderful local urologist Dr. Medina and patient was told to follow-up with him outpatient. He was offered pain medication but patient says that he struggles with alcoholism and substance abuse and would like to just continue to treat this with Tylenol ibuprofen and heating pads. He was given return precautions and taught signs symptoms of infection to watch out for all questions have been answered. Departure - Departure Disposition: 01 Home, Self Care Clinical Impression: Renal calculi Condition: Good Instructions: Kidney Stones Risk, Kidney Stones Tx Meds Follow-Up: Long Medina MD [Provider Admit Priv/Credential] - Prescriptions: Tamsulosin [Flomax] 0.4 mg PO DAILY #30 cap Comments: Thank you for trusting us with your care. We have found that you have a 6 mm stone in your left ureter. This is going to take time for it to pass make sure that you are drinking plenty of fluids and I have started you on a medication called Flomax to encourage it to complete its passing. Please follow-up with Dr. Medina or urologist outpatient you may need to call your primary care provider for urology referral to him but I have attached his contact information below for further evaluation of these repeat kidney stones that you are experiencing. As we discussed we did find a adrenal nodule on your right kidney. I attached the radiology read to your CT scan below for further evaluation. Please come back to the emergency department if started develop any fevers or chills worsening symptoms, or any other concerning emergent symptoms. Wishing you a speedy recovery. INDICATIONS: left flank pain, hx of kidney stones TECHNIQUE: A CT scan of the abdomen and pelvis was performed without the use of intravenous contrast. Images were recorded and evaluated at appropriate window settings. Reformats: coronal and sagittal. For radiation dose reduction, the following was used: automated exposure control, ad justment of mA and/or kV according to patient size. COMPARISON: CT abdomen and pelvis, 02/01/2017. FINDINGS: Image quality: Diagnostic. Lower chest: Unremarkable. Kidneys and ureters: There is a 6 mm stone in the distal left ureter demonstrating CT density 1069 Hounsfield units. Mild left hydronephrosis and perinephric stranding. There are multiple additional renal calculi bilaterally. No right hydronephrosis. No contour-deforming mass. Liver: No contour-deforming mass. Gallbladder and biliary tree: No gallstones. No biliary dilation. Spleen: No splenomegaly. Pancreas: No pancreatic ductal dilation. Adrenals: There is a 1.3 cm right adrenal nodule. Stomach, bowel and peritoneum: No bowel distension. No pathologic free fluid. Diverticulosis. No acute diverticulitis. Lymph nodes: No central or retroperitoneal adenopathy. Vessels: No infrarenal aortic aneurysm. There is a right common iliac artery aneurysm measuring 2.4 cm. Reproductive organs: Unremarkable. Bladder: Bladder wall thickness is normal, accounting for underdistention. No calcified bladder stones. Pelvic lymph nodes: No adenopathy by size criteria. Bones: No aggressive osseous abnormality. Mild spondylitic changes in lumbar spine. Other: No significant ventral or inguinal hernia. IMPRESSION: 1. A 6 mm obstructive left distal ureter stone causing mild hydronephrosis. 2. Bilateral nonobstructive renal calculi. 3. Diverticulosis without diverticulitis. 4. A 1.3 cm right adrenal nodule. Consider nonemergent adrenal protocol CT or MRI for further evaluation. 5. Right common iliac artery aneurysm measuring 2.4 cm Forms: PCP List Discharge Date/Time: 01/31/24 21:20
[2024-01-31] MEDS: SODIUM CHLORIDE 0.9% 1,000 ML IV ONE (19:38)
[2024-01-31] MEDS: KETOROLAC 15 MG/ML VIAL IVP STA (19:56)
[2024-01-31 20:18] LABS: BILIRUBIN,URINE NEGATIVE (NEGATIVE); GLUCOSE, URINE (UA) NEGATIVE (NEGATIVE); KETONES,URINE (UA) 15 mg/dL (NEGATIVE); LEUKOCYTE ESTERASE, URINE NEGATIVE (NEGATIVE); NITRITE,URINE NEGATIVE (NEGATIVE); OCCULT BLOOD,URINE MODERATE (NEGATIVE); PROTEIN,URINE NEGATIVE (NEGATIVE); UROBILINOGEN,URINE 0.2 (NORMAL) E.U./dL (NORMAL)
[2024-01-31 20:20] LABS: CLARITY,URINE CLEAR (CLEAR)
[2024-01-31 20:27] LABS: BACTERIA,URINE Rare /HPF (None Seen); SQUAMOUS EPITHELIAL CELL,UR NONE SEEN (<= Few); WBC,URINE 0-3 /HPF (0-3)
--- NOTE | 2024-01-31 20:57 | CT Report ---
PROCEDURE: KUB INDICATIONS: left flank pain, hx of kidney stones TECHNIQUE: A CT scan of the abdomen and pelvis was performed without the use of intravenous contrast. Images we re recorded and evaluated at appropriate window settings. Reformats: coronal and sagittal. For radiat ion dose reduction, the following was used: automated exposure control, adjustment of mA and/or kV ac cording to patient size. COMPARISON: CT abdomen and pelvis, 02/01/2017. FINDINGS: Image quality: Diagnostic. Lower chest: Unremarkable. Kidneys and ureters: There is a 6 mm stone in the distal left ureter demonstrating CT density 1069 Ho unsfield units. Mild left hydronephrosis and perinephric stranding. There are multiple additional kasia al calculi bilaterally. No right hydronephrosis. No contour-deforming mass. Liver: No contour-deforming mass. Gallbladder and biliary tree: No gallstones. No biliary dilation. Spleen: No splenomegaly. Pancreas: No pancreatic ductal dilation. Adrenals: There is a 1.3 cm right adrenal nodule. Stomach, bowel and peritoneum: No bowel distension. No pathologic free fluid. Diverticulosis. No acut e diverticulitis. Lymph nodes: No central or retroperitoneal adenopathy. Vessels: No infrarenal aortic aneurysm. There is a right common iliac artery aneurysm measuring 2.4 c m. Reproductive organs: Unremarkable. Bladder: Bladder wall thickness is normal, accounting for underdistention. No calcified bladder stone s. Pelvic lymph nodes: No adenopathy by size criteria. Bones: No aggressive osseous abnormality. Mild spondylitic changes in lumbar spine. Other: No significant ventral or inguinal hernia. IMPRESSION: 1. A 6 mm obstructive left distal ureter stone causing mild hydronephrosis. 2. Bilateral nonobstructive renal calculi. 3. Diverticulosis without diverticulitis. 4. A 1.3 cm right adrenal nodule. Consider nonemergent adrenal protocol CT or MRI for further evaluat ion. 5. Right common iliac artery aneurysm measuring 2.4 cm Reviewed by: Maverick Davila MD on 01/31/2024 8:56 PM PDT Approved by: Maverick Davila MD on 01/31/2024 8:56 PM PDT Station ID: [id number]
[2024-01-31] MEDS: TAMSULOSIN 0.4 MG CAPSULE PO STA (21:19)
== END 2024-01-31 21:20 | disposition home or self-care (01) ==
LOC: ED 17:58
DX: N13.2 Hydronephrosis with renal and ureteral calculous obstruction (principal); E27.8 Other specified disorders of adrenal gland; Z87.442 Personal history of urinary calculi; Z79.899 Other long term (current) drug therapy
CPT/HCPCS: 36415; 74176; 80053; 81001; 83690; 85025; 96374; 99284; A9270; 81003; 87086

== ENCOUNTER 2024-02-07 04:04 | Emergency (ER) | payer OTHER ==
--- NOTE | 2024-02-07 04:16 | ED Physician Documentation ---
PD HPI MALE - Stated complaint Stated Complaint: /VOMITING - Chief complaint Chief Complaint: Abd Pain - History obtained from History obtained from: Patient - Additional information Additional information: HPI from patient. Patient was treated and released from this emergency department 7 days ago for left flank pain, diagnosed on CT with 6 mm distal left ureteral calculus. On that visit, he had good relief with IV Toradol. The patient says that the pain has been intermittent, but has been severe for the last several hours and associate with nausea and vomiting. He says the pain initially began 11 days ago. At first, the pain was left flank, but had migrated to the left lower quadrant by the time he was evaluated 1 week ago in this emergency department. Tonight, he says the pain is just to the left of suprapubic region. Patient says he has had kidney stones before which have passed spontaneously. He denies fever. He does not have any prescription pain medication at home; the patient states that he is a recovering alcoholic and thus was trying to avoid narcotic medications and for this reason he declined prescription pain medication when he was discharged last week. Review of Systems Constitutional: denies: Fever, Chills, Sweats GI: reports: Abdominal Pain, Nausea, Vomiting. denies: Abdominal Swelling : denies: Dysuria, Frequency, Unable to Void, Incontinent Musculoskeletal: denies: Back pain PD PAST MEDICAL HISTORY - Past Medical History Past Medical History: Yes Cardiovascular: None Respiratory: None Endocrine/Autoimmune: None GI: None, Colon polyps : Kidney stones HEENT: Chronic vision loss Psych: None Musculoskeletal: None Derm: Psoriasis - Past Surgical History Past Surgical History: No General: Colonoscopy, Other - Present Medications Home Medications: Ambulatory Orders Medication Instructions Recorded Confirmed DULoxetine [Cymbalta] 20 mg PO DAILY 01/31/24 02/07/24 Rosuvastatin Calcium [Crestor] 10 mg PO DAILY 01/31/24 02/07/24 Tamsulosin [Flomax] 0.4 mg PO DAILY #30 cap 01/31/24 02/07/24 Ustekinumab [Stelara] 01/31/24 Ondansetron Odt [Zofran] 4 mg TL Q6H PRN #14 tablet 02/07/24 Oxycodone HCl/Acetaminophen 1 - 2 each PO Q6H PRN #14 tablet 02/07/24 [Percocet 5-325 mg Tablet] - Allergies Allergies/Adverse Reactions: Allergies Allergy/AdvReac Type Severity Reaction Status Date / Time Penicillins Allergy Hives Verified 02/07/24 04:15 Sulfa (Sulfonamide Allergy Hives Verified 02/07/24 04:15 Antibiotics) - Social History Does the pt smoke?: No Smoking Status: Never smoker Does the pt drink ETOH?: Yes Does the pt have substance abuse?: No - Immunizations Immunizations are current?: Yes - POLST Patient has POLST: No PD ED PE NORMAL - Vitals Vital signs reviewed: Yes - General General: Alert and oriented X 3, Well developed/nourished, Other (appears to be in significant painful distress) - Cardiac Cardiac: RRR, No murmur - Respiratory Respiratory: No respiratory distress, Clear bilaterally - Abdomen Abdomen: Soft, Non tender, Non distended - Back Back: No CVA TTP Results - Vitals Vitals: Vital Signs - 24 hr 02/07/24 02/07/24 02/07/24 04:12 05:24 06:02 Temperature 36.7 C Heart Rate 80 74 75 Respiratory 19 20 Rate Blood Pressure 181/104 H 189/108 H 143/95 H O2 Saturation 98 100 100 Oxygen O2 Source Room air - Labs Labs: Laboratory Tests 02/07/24 02/07/24 04:18 04:18 WBC 6.4 RBC 4.99 Hgb 14.8 Hct 44.1 MCV 88.4 MCH 29.7 MCHC 33.6 RDW 11.6 L Plt Count 235 MPV 8.1 Neut # (Auto) 5.1 Lymph # (Auto) 0.8 L [place] # (Auto) 0.4 Eos # (Auto) 0.0 Baso # (Auto) 0.0 Absolute Nucleated RBC 0.00 Nucleated RBC % 0.0 Sodium 134 L Potassium 4.3 Chloride 97 L Carbon Dioxide 28 Anion Gap 9.0 BUN 12 Creatinine 1.3 Estimated GFR (MDRD) 57 L Glucose 130 H Calcium 10.5 H PD Medical Decision Making - ED course Complexity details: reviewed old records (I reviewed the notes and test results from his ED visit 01/31/2024.), reviewed results, re-evaluated patient, considered differential, d/w patient ED course: Patient presents with recurrence of left-sided renal colic. He is in obvious painful distress on presentation. We discussed options for pain control. He says he is recovering alcoholic and was trying to avoid addictive substances such as narcotic medications, but he is now requesting Dilaudid. He says he had good relief with Dilaudid when he has had kidney stones in the past. I did discuss the options of Toradol as well as renal-dose lidocaine. The patient considers these, but is again requesting Dilaudid. Given that he has a CT- proven left-sided ureteral calculus on his visit 1 week ago, that he was declining prescription pain meds on his last visit at that time, and the amount of obvious painful distress he is in at this time, and also considering that the patient is expressing understanding of the potential risks associated with opiate/narcotic medication in the setting of history of addiction, I am comfortable giving patient narcotic/opiate medication for his renal colic. He is given 1mg IV dilaudid along with 1 liter NS and 4mg IV zofran, as well as 15mg IV toradol. No concerning findings on CBC, basic metabolic profile. On reevaluation, he appears more comfortable and reports modest pain relief. After further discussion, he is given a second dose of 1 mg IV Dilaudid and a second dose of 4 mg IV Zofran. On subsequent reevaluation, the patient is in NAD and reports feeling excellent pain relief. He is given take-home packs of Percocet and Zofran, and I am prescribing a short course of both these medica tions to his pharmacy of choice. Patient says he is awaiting referral to urology via his PCP and he says he will continue to pursue this referral. Return precautions are discussed. I am prescribing a short course of short-acting opioid pain medication for this patient. I have reviewed the patients [employer] and no concerning findings were noted. I have discussed that the opioids are for short term therapy only, and will not be refilled from the ED. Departure - Departure Disposition: 01 Home, Self Care Clinical Impression: Renal colic on left side Condition: Good Instructions: ED Stone Renal W Colic Prescriptions: Oxycodone HCl/Acetaminophen [Percocet 5-325 mg Tablet] 1 - 2 each PO Q6H PRN #14 tablet PRN Reason: pain Ondansetron Odt [Zofran] 4 mg TL Q6H PRN #14 tablet PRN Reason: Nausea / Vomiting Comments: There were no concerning findings on briana's blood test. I have electronically submitted prescriptions for Percocet (opiate/narcotic pain medication) and ondansetron (antinausea medication) to the [facility] in [place]. Continue to pursue follow-up with urology via referral from your primary care provider. I am prescribing a short course of narcotic pain medication for you. These are potentially dangerous and addictive medications that should be used carefully. These medications may constipate you. Take an [id number]-gnp-ynqaiap stool softener (docusate) twice daily with plenty of water while taking these medications. If you go 24 hours without a bowel movement, take [id number] miralax, per package instructions. Do not drink or drive while taking these medications. If you received narcotic or sedating medications while in the emergency department, do not drive for 24 hours. Store this medication in a safe, secure place and out of reach of children. It is a violation of federal law to give or sell this medication to another person or to use in a manner other than prescribed. The ED will not refill narcotic prescriptions, including prescriptions lost or stolen. To dispose of unwanted medications: 1. [facility] [address] in [place] has a medication drop box. They accept prescription medications (in pill form) Sunday through Sunday 9:00 a.m. to 5:00 p.m. 2. [facility] accepts prescription medications (in pill form only) for disposal year round. Call for more information. 3. Contact the [facility] for the next [facility] sponsored prescription drug collection event. , [phone], or [phone]; Forms: PCP List Discharge Date/Time: 02/07/24 06:03
[2024-02-07 04:30] LABS: BASOPHILS % (AUTO) 0.5 %; EOSINOPHILS % (AUTO) 0.3 %; HCT - HEMATOCRIT 44.1 % (42.0-52.0); HGB - HEMOGLOBIN 14.8 g/dL (14.0-18.0); LYMPHOCYTES # (AUTO) 0.8 10^3/uL (1.5-3.5); LYMPHOCYTES % (AUTO) 12.2 %; MEAN CORPUSCULAR HEMOGLOBIN 29.7 pg (27.0-31.0); MEAN CORPUSCULAR HGB CONC 33.6 g/dL (32.0-36.0); MEAN CORPUSCULAR VOLUME 88.4 fL (80.0-94.0); MEAN PLATELET VOLUME 8.1 fL (7.4-11.4); MONOCYTES # (AUTO) 0.4 10^3/uL (0.0-1.0); MONOCYTES % (AUTO) 6.9 %; NEUTROPHILS # (AUTO) 5.1 10^3/uL (1.5-6.6); NEUTROPHILS % (AUTO) 79.8 %; PLT - PLATELET COUNT 235 10^3/uL (130-450); RED BLOOD COUNT 4.99 10^6/uL (4.70-6.10); RED CELL DISTRIBUTION WIDTH 11.6 % (12.0-15.0); WHITE BLOOD COUNT 6.4 x10^3/uL (4.8-10.8)
[2024-02-07] MEDS: SODIUM CHLORIDE 0.9% 1,000 ML IV STA (04:37)
[2024-02-07] MEDS: ONDANSETRON 4 MG/2 ML VIAL IVP STA ×2 (04:37→05:19)
[2024-02-07] MEDS: HYDROmorphone 1 MG/ML CARPUJECT IVP STA ×2 (04:37→05:19)
[2024-02-07] MEDS: KETOROLAC 15 MG/ML VIAL IVP STA (04:37)
[2024-02-07 04:47] LABS: CALCIUM 10.5 mg/dL (8.5-10.3); CREATININE 1.3 mg/dL (0.6-1.3); POTASSIUM 4.3 mmol/L (3.5-4.5)
[2024-02-07] MEDS: ONDANSETRON ODT 4 MG Prepack 2 TL PRN (05:22)
[2024-02-07] MEDS: oxyCODONE/ACET 5/325 Prepack 4 PO STA (05:22)
[2024-02-07 05:31] VITALS: O2SAT 100
[2024-02-07 06:09] VITALS: BP 143/95
== END 2024-02-07 06:03 | disposition home or self-care (01) ==
LOC: ED 04:04
DX: N23 Unspecified renal colic (principal)
CPT/HCPCS: 36415; 80048; 85025; 96374; 96376; 99283; 99284; A9270; J1170

== ENCOUNTER 2024-02-13 08:00 | Outpatient (CLI) | payer OTHER | END 2024-02-13 23:59 | disposition home or self-care (01) | LOC: LAB 08:00 | PROVIDERS: ATTEND Urology | DX: Z87.442 Personal history of urinary calculi (principal) | CPT/HCPCS: 82365 ==

== ENCOUNTER 2024-02-15 07:34 | Outpatient (CLI) | payer OTHER | END 2024-02-15 07:35 | disposition home or self-care (01) | LOC: LAB 07:34 | PROVIDERS: ATTEND Urology | DX: D35.00 Benign neoplasm of unspecified adrenal gland (principal); Z87.442 Personal history of urinary calculi | CPT/HCPCS: 36415; 82088; 82533; 83970; 84244; 84550 ==

== ENCOUNTER 2024-02-17 08:00 | Outpatient (CLI) | payer OTHER | END 2024-02-17 23:59 | disposition home or self-care (01) | LOC: LAB.R 08:00 | PROVIDERS: ATTEND Urology | DX: D35.00 Benign neoplasm of unspecified adrenal gland (principal) | CPT/HCPCS: 81599; 83835 ==